=== PATIENT | male | born 2000 | race Caucasian/White ===

== ENCOUNTER 2023-01-15 09:50 | Emergency (ER) | payer SELFPAY ==
[~2023-01-15 09:50] MED LIST: Iopamidol 300 61% 100 ML VIAL FS ONE
== END 2023-01-15 11:26 | disposition home or self-care (01) ==
LOC: CSHERS 09:50
DX: R10.13 Epigastric pain (principal); R11.2 Nausea with vomiting, unspecified
CPT/HCPCS: 74177; 96360; Q9967